=== PATIENT | male | born 1960 | race Caucasian/White ===

== ENCOUNTER 2021-10-21 01:53 | Day surgery (SDC) | payer OTHER, SELFPAY ==
[2021-10-08 13:07] VITALS: BMI 37.6
[2021-10-21 09:58] VITALS: BP 153/76; PULSE 90; RESP 20; TEMP 36.4; O2SAT 96; BMI 39.6
[2021-10-21] MEDS: LACTATED RINGERS 1,000 ML 150 ML IV CONT (10:08)
--- NOTE | 2021-10-21 10:38 | P.PNAN_ITS ---
Anes - Initial Pre Proc Eval Procedure: Operation Date: 10/21/21 11:15 Proposed Procedures p Screening Colonoscopy - Alverto Castañeda MD Date/Time: 10/21/21 10:38 Surgeon: Alverto Castañeda MD Pre Op Diagnosis: neoplasm screening Patient Data Age: 61 Gender: M Height: 1.8 m Weight: 128.8 kg Last Vital Signs Temp 97.5 F L 10/21/21 09:58 Pulse 90 10/21/21 09:58 Resp 20 10/21/21 09:58 BP 153/76 H 10/21/21 09:58 Pulse Ox 96 10/21/21 09:58 O2 Del Method Room Air 10/21/21 09:58 Allergies Allergy/AdvReac Type Severity Reaction Status Date / Time Penicillins AdvReac Hives Verified 10/21/21 09:57 Home Medications Medication Instructions Recorded Confirmed Type No Home Medications 10/08/21 10/08/21 History Patient hx anesthesia problems: none Family hx anesthesia problems: none Results Review: All pre-operative results and documents have been reviewed as part of the pre- operative evaluation. [facility] Social History Social History Smoking status: Former smoker Alcohol intake: current Drinks per week: 2 Substance use: never Living arrangements: with family Spiritual care concerns: No Anes - Eval Final PreProcedure Day of Procedure 10/21/21 10:38 Patient weight: morbidly obese Heart: regular rate and rhythm Lungs: clear to auscultation Airway: Mallampati scale class III Neurological: alert and oriented Last oral intake: >/= 8 hours ASA classification: III Emergent: no Anesthetic plan: proceed Anesthesia type and monitoring: general GIVS and standard monitoring Results Review: All pre-operative results and documents have been reviewed as part of the pre- operative evaluation. Informed Consent: The patient's anesthetic plan and its attendant risks and benefits were discussed with the patient/family/POA. Questions were solicited and answers provided to the satisfaction of the patient/family/POA.
--- NOTE | 2021-10-21 11:03 | P.HP_ITS ---
History of Present Illness History of Present Illness Consent: Risks, benefits, and alternatives have been discussed and questions answered. Patient agrees to proceed with procedure. Chief complaint: neoplasm screening Narrative: Aleksey Devries is a 61 year old male here for first screening colonoscopy Review of Systems Constitutional: Constitutional: Denies headache(s) and Denies weakness Eyes: Eyes: Denies blurry vision ENT: Reports Normal hearing present, Denies headache(s) and Denies neck pain Cardiovascular: Cardiovascular: Denies chest pain and Denies dyspnea Respiratory: Respiratory: Denies dyspnea Gastrointestinal: Gastrointestinal: Reports no additional gastrointestinal complaints Genitourinary: Genitourinary: Denies dysuria Musculoskeletal: Musculoskeletal: Denies neck pain Integumentary/Breasts: Skin/Breast: Denies dry skin Neurologic: Reports Normal hearing present, Denies headache(s) and Denies weakness Psychiatric: Psychiatric: Denies anxiety Endocrine: Endocrine: Denies change in body appearance Hematologic/Lymphatic: Hematologic/Lymphatic: Denies easy bleeding Allergic/Immunologic: Allergic/Immunologic: Denies urticaria [facility] Past Medical History Medical History (Updated 10/21/21 @ 11:03 by Alverto Castañeda MD) Colon cancer screening Social History Social History Smoking status: Former smoker Alcohol intake: current Drinks per week: 2 Substance use: never Living arrangements: with family Spiritual care concerns: No Meds Home Medications and Allergies Home Medications Medication Instructions Recorded Confirmed Type No Home Medications 10/08/21 10/08/21 History Allergies Allergy/AdvReac Type Severity Reaction Status Date / Time Penicillins AdvReac Hives Verified 10/21/21 09:57 Vital Signs Vital Signs - 24 hr 10/21/21 09:58 Temperature 97.5 F L Pulse Rate 90 Respiratory Rate 20 Blood Pressure 153/76 H Pulse Oximetry 96 Oxygen Delivery Room Air Exam Const: General: comfortable and no acute distress HENMT: General nose exam: Normal nares present Eyes: General: appearance normal, both eyes and all related structures Neck: Neck: no JVD Resp: Auscultation: clear to auscultation bilaterally Cardio: Rate: regular rate Rhythm: regular rhythm GI: Inspection: non-distended GI Palp: Yes Soft to palpation Skin: General skin exam: normal color Neuro: General: gait normal Speech: normal speech Extrem: General: normal to inspection Psych: Mental Status: mental status grossly normal Assessment and Plan Assessment and plan (1) Colon cancer screening: Code(s): Z12.11 - Encounter for screening for malignant neoplasm of colon Status: Acute Assessment and Plan: colonoscopy
[2021-10-21 11:25] VITALS: BP 122/78; PULSE 72; RESP 15; O2SAT 94
[2021-10-21 11:35] VITALS: BP 128/83; PULSE 72; RESP 18; O2SAT 96
[2021-10-21 11:45] VITALS: BP 145/89; PULSE 71; RESP 24; O2SAT 96
== END 2021-10-21 11:50 | disposition home or self-care (01) ==
PROVIDERS: PCP Internal Medicine; Visit Provider Internal Medicine Gastroenterology
PROC: 0DJD8ZZ Inspection of Lower Intestinal Tract, Via Natural or Artificial Opening Endoscopic (ICD-10-PCS; CPT 45378; principal; 2021-10-21 11:15)
DX: Z12.11 Encounter for screening for malignant neoplasm of colon (principal); D12.4 Benign neoplasm of descending colon; D12.3 Benign neoplasm of transverse colon; K63.5 Polyp of colon; K57.30 Diverticulosis of large intestine without perforation or abscess without bleeding; K64.8 Other hemorrhoids; Z87.891 Personal history of nicotine dependence; E66.01 Morbid (severe) obesity due to excess calories; Z68.39 Body mass index [BMI] 39.0-39.9, adult
CPT/HCPCS: 45380; 45385; 88305; J2001; J2704; J7120

== ENCOUNTER 2023-05-06 10:25 | Emergency (ER) | payer BC, SELFPAY ==
--- NOTE | 2023-05-06 10:30 | ED.EAR ---
HPI - Ear Problem General Chief complaint: Ear Stated complaint: left ear hearing difficulty Time Seen by Provider: 05/06/23 10:29 Source: patient Mode of arrival: ambulatory Limitations: no limitations History of Present Illness HPI Narrative: Patient is a 62-year-old male who presents with left ear decreased hearing. Patient uses Q-tips to clean ears. Reports issues with ear wax in the past. Denies any congestion, cough, fever, chills, sore throat and dizziness. MD Complaint: ear pain Related Data Home Medications Medication Instructions Recorded Confirmed rosuvastatin 10 mg tablet 10 mg PO DAILY 05/06/23 05/06/23 Allergies Allergy/AdvReac Type Severity Reaction Status Date / Time Penicillins AdvReac Hives Verified 05/06/23 10:33 Review of Systems Review of Systems: All systems reviewed & are unremarkable except as noted in HPI and below Constitutional: Constitutional: Denies body ache(s), Denies chills, Denies fever(s), Denies headache(s) and Denies malaise Eyes: Eyes: Denies blurry vision, Denies eye discharge and Denies irritation ENT: Reports ear discharge, Denies otalgia, Denies headache(s), Denies nasal congestion, Denies nasal discharge and Denies sore throat Cardiovascular: Cardiovascular: Denies chest pain, Denies edema, Denies palpitations and Denies dyspnea on exertion Respiratory: Respiratory: Denies cough and Denies dyspnea on exertion Gastrointestinal: Gastrointestinal: Denies abdominal pain, Denies diarrhea, Denies nausea and Denies vomiting Musculoskeletal: Musculoskeletal: Denies back pain, Denies arthralgias and Denies muscle weakness Integumentary/Breasts: Skin/Breast: Denies pruritus and Denies rash Neurologic: Denies headache(s) Psychiatric: Psychiatric: Reports no additional psychiatric complaints Endocrine: Endocrine: Denies palpitations PMFSH Past Medical History Medical History Colon cancer screening Social History Social History Smoking status: Former smoker Alcohol intake: current Drinks per week: 2 Substance use: never Living arrangements: with family Spiritual care concerns: No Comments At time of signature, agree with nursing past medical, surgical, social and family history. There is no relevant family history pertinent to the presenting complaint? Exam Const: General: cooperative, healthy appearing, no acute distress and well nourished Nutritional Appearance: well nourished Orientation/consciousness: patient oriented x3 Limitations: no limitations HENMT: Head: normal to inspection, normocephalic and atraumatic Ears: hearing grossly normal bilaterally, EAC's normal, no periauricular adenopathy and TM abnormal obstructed by cerumen bilateral Face/Nose/Sinus: Normal external nose present, Normal nares present, Normal nasal mucous membranes and turbinates present, No nasal discharge present, normal facial exam and sinuses nontender Face and sinus: normal facial exam and sinuses nontender Mouth: Yes Normal oral and palatal mucosa present, Yes lip normal, Yes tongue normal and Yes moist mucous membranes Throat: posterior oropharynx normal, tonsils normal and uvula midline Eyes: General: appearance normal, both eyes and all related structures Alignment and Position: alignment normal and position normal Eyelids: eyelids normal Pupils: Equal, round and reactive pupils present EOM: EOMs intact bilaterally Neck: Neck: normal visual inspection, full ROM, no lymphadenopathy and supple Chest: Chest palpation & inspection: normal inspection of the chest Resp: Effort & Inspection: normal respiratory effort and able to speak in complete sentences Auscultation: clear to auscultation bilaterally, no crackles, no rales, no rhonchi and no wheezes Cardio: Rate: regular rate Rhythm: regular rhythm Heart sounds: S1 normal heart sound present and S2 normal
[2023-05-06 10:38] VITALS: BP 148/95; PULSE 88; RESP 16; TEMP 37.7; O2SAT 99
== END 2023-05-06 11:24 | disposition home or self-care (01) ==
PROVIDERS: Emergency Provider Nurse Practitioner Family; PCP Internal Medicine
DX: H61.23 Impacted cerumen, bilateral (principal); Z79.899 Other long term (current) drug therapy; Z87.891 Personal history of nicotine dependence
CPT/HCPCS: 69210; 99212; G0463

== ENCOUNTER 2025-04-04 01:33 | Day surgery (SDC) | payer MEDICARE, SELFPAY ==
[2025-03-12 10:53] VITALS: BMI 39.3
--- OUTSIDE RECORDS SUMMARY | 2025-04-04 01:36 | XMS_ITS | Clinical Summary ---
Author Organization [facility] Address [address] [place] [id number] Care Team Providers Care Clinical Rehab Liaison Name Role Phone Unavailable Primary Care Provider Unavailabl e Social History Tobacco Use Types Packs/Day Years Used Date Smoking Tobacco: Never Assessed Sex and Gender Information Value Date Recorded Sex Assigned at Not on file Legal Sex Male 6:51 PM CDT Gender Identity Not on file Sexual Orientation Not on file Plan of Treatment Health Maintenance Due Date Last Done Comments Colorectal Cancer Screening Colonoscopy (10 Years) 1958 Hepatitis C 1976 DTaP, Tdap and Td Vaccines ( 1 - Tdap) 1977 Pneumococcal Vaccine: 50+ Ye ars (1 of 1 - PCV) 2008 Zoster Vaccines (1 of 2) 2008 COVID-19 Vaccine ( - 2024-2 6 season) 2024 Influenza Adult (#1) 2025 RSV Immunization or 60+ Years (1 - 1-dose 75+ series) 2033 Hepatitis A Vaccines Aged Out No long er eligible based on patient's age to complete this topic Meningococcal B Vaccine Aged Out No l onger eligible based on patient's age to complete this topic Meningococcal Vaccine Aged Out No caroline sola eligible based on patient's age to complete this topic RSV Immunizations Under 20 Months Aged Out No longer eligible based on patient's age to complete this topic
--- OUTSIDE RECORDS SUMMARY | 2025-04-04 01:36 | XMS_ITS | Clinical Summary ---
Author Organization [facility] Address [address] [place] [address] Care Team Providers Care Configuration Management Architect Name Role Phone Alberto Ansari DO Unavailable [phone] Eric Lance MD Primary Care Provider [phone] Allergies Active Allergy Reactions Criticality Noted Date Comments Penicillins Rash Medium 12/02/2019 Medications HYDROcodone-acetam inophen (NORCO) 5-325 mg per tablet 12/03/19 20 Active ondansetron ODT (ZOFRAN-ODT) 4 mg disintegrating tablet 12/03/19 20 Active aspirin 81 mg enteric coated tablet Take 1 tablet (81 mg total) by mouth 2 (two) times a day 12/07/19 20 Active diphenhydrAMINE-ac etaminophen (TYLENOL PM) 25-500 mg tablet Take 1-2 tablets by mouth nightly as needed for sleep Active calcium carbonate (TUMS) 500 mg calcium (200 mg of elemental calcium) chewable tablet Take 1-2 tablet/chew tab (500-1,000 mg total) by mouth daily as needed for indigestion or heartburn Active rosuvastatin (CRESTOR) 10 mg tablet Take 1 tablet (10 mg total) by mouth daily Active Active Problems Problem Noted Date Diagnosed Date Hyperlipidemia 10/01/2024 Morbid obesity 10/01/2024 Status post open reduction w ith internal fixation (ORIF) of fracture of ankle 12/09/2022 Assessment & Plan (12/09/2022 12:15 PM CDT): Patient is overall doing very well. Discussed with patient possibility of hardware removal if it was bothering him enough, but patient states it is not bothering him enough to consider hardware removal. Discussed ways to manage swelling including compression, elevation, icing, and ibuprofen as needed. All questions were addressed today. He may follow-up in 1 year for hardware check, or p.r.n. before then. He expressed understanding and agreement with the plan. Closed fracture of right distal fibula 1 Overview (09/29/2020): Added automatically from request for surgery [id number] Closed trimalleolar fracture 12/05/2019 Fall injury while running 12/05/2019 Surgical History Surgery Date Site/Laterality Comments ANKLE FRACTURE SURGERY 12/07/2019 Right ORIF R Trimalleolar Fx ANKLE SURGERY 03/28/2020 removed one piece of hardware states pt KELOID EXCISION 04/25/1971 keloid tumor excision from neck Medical History Medical History Date Comments GERD (gastroesophageal reflux disease) with certain acid type foods see med list for prn treatment Obesity HL (hearing loss) right ear slig htly decreased no devices Wears glasses Dental filling status fillings m issing from some teeth right and left upper sides and left lower side Uses crutches pt is using crut ches at this time Family History Medical History Relation Name Comments Arthritis Father Heart disease Father Cancer Mother Relation Name Status Comments Father Mother Social History Tobacco Use Types Packs/Day Years Used Date Smoking Tobacco: Former Cigarettes 1 - 2009 Smokeless Tobacco: Never Tobacco Cessation:Counseling Given: No Alcohol Use Standard Drinks/Week Comments Yes 0 (1 standard drink = 0.6 oz pur e alcohol) AUDIT-C Answer Date Recorded Q1: How often do you have a drink containing alc ohol? Monthly or less 09/26/2020 Q2: How many drinks containi ng alcohol do you have on a typical day when you are drinking? 3 or 4 09/26/2020 Q3: How often do you have si x or more drinks on one occasion? 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 on file Not on file Not on file Last Filed Vital Signs Vital Sign Reading Time Taken Comments Blood Pressure 148/84 09/30/2020 12:50 PM CDT Pulse 85 09/30/2020 12:50 PM CDT Temperature 36 C (96.8 F) 09/30/2020 12:20 PM CDT Respiratory Rate 0 09/30/2020 12:59 PM CDT Oxygen Saturation 91% 09/30/2020 12:50 PM CDT Inhaled Oxygen Concentration - - Weight 137 kg (302 lb) 10/01/2024 8:11 AM CDT Height 180.3 cm (5' 11) 10/01/2024 8:11 AM CDT Body Mass Index 42.12 10/01/2024 8:11 AM CDT Plan of Treatment Health Maintenance Due Date Last Done Comments Colon Cancer Screening-Colonoscopy 1960 Depression Screening 1958 Hepatitis C Screening 1958 Prostate Cancer Screening-PSA 1958 Hepatitis B Screening 1976 Zoster Vaccine (1 of 2) 2008 Fall Risk Assessment 09/30/2021 09/30/2020 Abdominal Aortic Aneurysm (AAA) Screen 09/05/2023 Well Visit 65+ 09/05/2023 Influenza Vaccine (#1) 2024 05/10/2023 DTaP/Tdap/Td Vaccine (2 - Td or Tdap) 05/10/2033 Pneumococcal vaccine 65+ Completed 11/24/2023 Medical Devices Implanted Type Area Engine Generator Assembler Device Identifier Shelf Expiration Date Model / Serial / Lot [employer] Abs-2009-08 Graft Bone Allosync 5cc Allograft Pure - [id number] Implanted:Qty: 1 on 09/30/2020 by Alberto Ansari DO at [facility] Graft Right: Ankle [employer] 04/14/2025 ABS- 5 / / [id number], Right Distal Fibula Plate Implanted:Qty: 1 on 09/30/2020 by Alberto Ansari DO at [facility] Plate Right: Ankle [employer] AR-8943BR- 08 / / [id number] Unknown Right: Ankle Description:Right ankle ORIF [employer] Ar-8835-16 Low Profile Screws 3.5mm 16mm Modular Solid Hexalobe Self Tap - [id number] Implanted:Qty: 1 on 09/30/2020 by Alberto Ansari DO at [facility] Right: Ankle [employer] AR-8835-16 / / [employer] Ar-8827l-18 Low Profile Screws 2.7mm 18mm Modular Solid Hexalobe Lock Ankle - [id number] Implanted:Qty: 1 on 09/30/2020 by Alberto Ansari DO at [facility] Right: Ankle [employer] AR-8827L-1 8 / / 2.7 Locking Screw Implanted:Qty: 3 on 09/30/2020 by Alberto Ansari DO at [facility] Right: Ankle [employer] AR-8827L-2 0 / / [employer] Ar-8835l-16 Low Profile Screws 3.5mm 16mm Modular Solid Hexalobe Lock Ankle - [id number] Implanted:Qty: 4 on 09/30/2020 by Alberto Ansari DO at [facility] Right: Ankle [employer] AR-8835L-1 6 / / [employer] Ar-8925ss System Fxatn Tightrope Xp Ss Syndesmosis Repair - [id number] Implanted:Qty: 1 on 09/30/2020 by Alberto Ansari DO at [facility] Right: Ankle [employer] [id number] 06/22/2025 AR-8925SS / / [employer] Ar-8925ss System Fxatn Tightrope Xp Ss Syndesmosis Repair - [id number] Implanted:Qty: 1 on 09/30/2020 by Alberto Ansari DO at [facility] Right: Ankle [employer] [id number] 06/22/2025 AR-8925SS / / AR-8925SS 3.5 Non Locking Screw Implanted:Qty: 1 on 09/30/2020 by Alberto Ansari DO at [facility] Right: Ankle [employer] AR-8935-60 / / [id number] [place] [address] [employer] MED[employer]ARE GOLD Care Teams Configuration Management Architect Relationship Specialty Start Date End Date Eric Lance MD [address] [place] [address] [place] [id number] PCP - General Internal Medicine 10/16/20 Alberto Ansari DO [address] [place] [address] Consulting Physician Orthopedic Surgery 09/30/20
[2025-04-04 08:56] VITALS: BP 159/86; PULSE 78; RESP 18; TEMP 36.4; O2SAT 97
[2025-04-04] MEDS: LACTATED RINGERS 1,000 ML 150 ML IV CONT (09:07)
--- NOTE | 2025-04-04 09:08 | WPDANESEPPF ---
Anes - Initial Pre Proc Eval Procedure: Operation Date: 04/04/25 10:00 Proposed Procedures p Screening Colonoscopy - Alverto Castañeda MD Date/Time: 04/04/25 09:08 Surgeon: Alverto Castañeda MD Pre Op Diagnosis: Personal history of colon polyps, unspecified Patient Data Age: 64 Gender: M Height: 1.8 m Weight: 128 kg Last Vital Signs Temp 97.6 F 04/04/25 08:56 Pulse 78 04/04/25 08:56 Resp 18 04/04/25 08:56 BP 159/86 H 04/04/25 08:56 Pulse Ox 97 04/04/25 08:56 O2 Del Method Room Air 04/04/25 08:56 Allergies Allergy/AdvReac Type Severity Reaction Status Date / Time Penicillins AdvReac Hives Verified 04/04/25 08:55 Home Medications ?Medication ?Instructions ?Recorded ?Confirmed ?Type rosuvastatin 10 mg tablet 10 mg PO DAILY 05/06/23 03/13/25 History Patient hx anesthesia problems: none Family hx anesthesia problems: none Results Review: All pre-operative results and documents have been reviewed as part of the pre-operative evaluation. [facility] Past Medical History Medical History Colon cancer screening Social History Social History Smoking packs per day: 0.5 Smoking cigarettes per day: 10.0 Years smoked: 20 Smoking pack-years: 10.00 Smoking status: Former smoker Alcohol intake: current Drinks per week: 2 Substance use: never Living arrangements: with family Spiritual care concerns: No Anes - Eval Final PreProcedure Day of Procedure 04/04/25 09:08 Patient weight: morbidly obese Heart: regular rate and rhythm Lungs: clear to auscultation Airway: Mallampati scale class II Neurological: alert and oriented Last oral intake: >/= 8 hours ASA classification: III Emergent: no Anesthetic plan: proceed Anesthesia type and monitoring: general GIVS and standard monitoring Results Review: All pre-operative results and documents have been reviewed as part of the pre-operative evaluation. Informed Consent: The patient's anesthetic plan and its attendant risks and benefits were discussed with the patient/family/POA. Questions were solicited and answers provided to the satisfaction of the patient/family/POA.
--- NOTE | 2025-04-04 09:30 | P.HP_ITS ---
History of Present Illness History of Present Illness Consent: Risks, benefits, and alternatives have been discussed and questions answered. Patient agrees to proceed with procedure. Chief complaint: Personal history of colon polyps, unspecified Narrative: Aleksey Devries is a 64 year old male with colon polyp in 2021 Review of Systems Review of Systems: All systems reviewed & are unremarkable except as noted in HPI and below PMFSH Past Medical History Medical History (Updated 04/04/25 @ 09:31 by Alverto Castañeda MD) Colon polyp Colon cancer screening Social History Social History Smoking packs per day: 0.5 Smoking cigarettes per day: 10.0 Years smoked: 20 Smoking pack-years: 10.00 Smoking status: Former smoker Alcohol intake: current Drinks per week: 2 Substance use: never Living arrangements: with family Spiritual care concerns: No Meds Home Medications and Allergies Home Medications ?Medication ?Instructions ?Recorded ?Confirmed ?Type rosuvastatin 10 mg tablet 10 mg PO DAILY 05/06/2302/23 History Allergies Allergy/AdvReac Type Severity Reaction Status Date / Time Penicillins AdvReac Hives Verified 04/04/25 08:55 Vital Signs Vital Signs - 24 hr 04/04/25 08:56 Temperature 97.6 F Pulse Rate 78 Respiratory Rate 18 Blood Pressure 159/86 H Pulse Oximetry 97 Oxygen Delivery Room Air Exam Const: General: comfortable and no acute distress HENMT: Face/Nose/Sinus: Normal nares present Eyes: General: appearance normal, both eyes and all related structures Neck: Neck: no JVD Resp: Auscultation: clear to auscultation bilaterally Cardio: Rate: regular rate Rhythm: regular rhythm GI: Inspection: non-distended GI Palp: Yes Soft to palpation Skin: General skin exam: normal color Extrem: General: normal to inspection Psych: Mental Status: mental status grossly normal Assessment and Plan Assessment and plan (1) Colon polyp: Code(s): K63.5 - Polyp of colon Status: Acute Assessment and Plan: colonoscopy
[2025-04-04 09:47] VITALS: BP 127/78; PULSE 68; RESP 15; O2SAT 96
[2025-04-04 09:57] VITALS: BP 122/76; PULSE 66; RESP 26; O2SAT 96
[2025-04-04 10:07] VITALS: BP 147/90; PULSE 68; RESP 16; O2SAT 97
== END 2025-04-04 10:20 | disposition home or self-care (01) ==
PROVIDERS: PCP Internal Medicine; Referring Provider Internal Medicine Gastroenterology; Visit Provider Internal Medicine Gastroenterology
PROC: 0DJD8ZZ Inspection of Lower Intestinal Tract, Via Natural or Artificial Opening Endoscopic (ICD-10-PCS; CPT 45378; principal; 2025-04-04 10:00)
DX: Z12.11 Encounter for screening for malignant neoplasm of colon (principal); K57.30 Diverticulosis of large intestine without perforation or abscess without bleeding; K64.8 Other hemorrhoids; K64.4 Residual hemorrhoidal skin tags; Z86.0100 Personal history of colon polyps, unspecified; Z87.891 Personal history of nicotine dependence; E66.01 Morbid (severe) obesity due to excess calories; Z68.39 Body mass index [BMI] 39.0-39.9, adult
CPT/HCPCS: G0105; J2704; J7120

== ENCOUNTER 2025-04-22 18:12 | Emergency (ER) | payer MEDICARE, SELFPAY ==
--- NOTE | ~2025-04-22 | CT_ITS ---
CT HEAD NON-CONTRAST Clinical History: headache, hypertension Comparison: None Technique: Unenhanced axial images skull base to vertex Coronal, sagittal reformats CT images acquired with automatic exposure control for dose reduction DLP: 681 mGy-cm Findings: Sulci, ventricles: Unremarkable. No intracerebral hemorrhage. No evidence acute territorial infarct. No mass effect, midline shift. Bony calvarium intact. Visualized paranasal sinuses: Left frontal opacified. Mastoid air cells: Clear. IMPRESSION: 1. No acute intracranial findings. Reviewed, dictated and finalized at location R. USEMENT RIDE INSPECTOR
--- OUTSIDE RECORDS SUMMARY | 2025-04-22 18:14 | XMS_ITS | Clinical Summary ---
Author Organization [facility] Address [address] [place] [id number] Care Team Providers Care Manager Information Name Role Phone Unavailable Primary Care Provider [...] Vaccines (1 of 2) 2008 COVID-19 Vaccine (1 - 2024-2 6 season) 2024 Influenza Adult [...]
[2025-04-22 18:20] VITALS: BP 157/96; PULSE 95; RESP 18; TEMP 36.7; O2SAT 99
[2025-04-22 22:11] VITALS: BP 155/93; PULSE 88; RESP 16; TEMP 36.3; O2SAT 98
--- OUTSIDE RECORDS SUMMARY | 2025-04-22 23:51 | XMS_ITS | Clinical Summary ---
Author Organization [facility] Address [address] [place] [id number] Care Team Providers Care Catheter Builder Name Role Phone Unavailable Primary Care Provider [...]
[2025-04-23] VITALS (7 sets, daily range): BP systolic 137–152; BP diastolic 81–99; PULSE 77–84; RESP 16–20; TEMP 36.6; O2SAT 92–99
--- NOTE | 2025-04-23 00:21 | ED.HA ---
HPI - Headache General Chief Complaint: Headache Stated Complaint: CASTRO, HTN Time Seen by Provider: 04/22/25 23:23 Source: patient Mode of arrival: ambulatory Limitations: no limitations History of Present Illness HPI Narrative: This is a 64 year old male that presents to the ER for headaches. Ongoing intermittently over the last week. Reports his blood pressure has been elevated. Does not take medication for hypertension. Denies vision changes, vomiting, focal numbness, weakness. Related Data Home Medications ?Medication ?Instructions ?Recorded ?Confirmed ?Last Taken ?Type rosuvastatin 10 mg tablet 10 mg PO DAILY 05/06/23 03/13/25 Unknown History Allergies Allergy/AdvReac Type Severity Reaction Status Date / Time Penicillins AdvReac Hives Verified 04/22/25 18:13 Review of Systems Review of Systems: All systems reviewed & are unremarkable except as noted in HPI and below PMFSH Past Medical History Medical History (Updated 04/23/25 @ 02:14 by Ambar Lange PA-C) Colon polyp Colon cancer screening Social History Social History Smoking packs per day: 0.5 Smoking cigarettes per day: 10.0 Years smoked: 20 Smoking pack-years: 10.00 Smoking status: Former smoker Alcohol intake: current Drinks per week: 2 Substance use: never Living arrangements: with family Spiritual care concerns: No Exam Narrative: GENERAL: Well-appearing, well-nourished, and in no acute distress. HEAD: Normocephalic, atraumatic. EYES: PERRLA and EOMI. ENT: Nares clear, no rhinorrhea or epistaxis. Mucous membranes moist. Oropharynx without tonsillar hypertrophy exudate or other lesions. Bilateral TMs pearly phillips non-bulging NECK: Supple. No adenopathy or masses. CHEST: Clear to auscultation. No respiratory distress. No wheezes rales or rhonchi HEART: Regular rate and rhythm. No murmur heard. Normal peripheral pulses. EXTREMITIES: Normal range of motion. No edema. SKIN: Warm, dry, no rash. NEURO: No focal deficits. Alert and oriented x3. CN II-XII grossly intact PSYCH: Normal mood and affect Course Vital Signs Vital signs: Vital Signs Temperature 98.0 F 04/22/25 18:20 Pulse Rate 95 04/22/25 18:20 Respiratory Rate 18 04/22/25 18:20 Blood Pressure 157/96 H 04/22/25 18:20 Pulse Oximetry 99 04/22/25 18:20 Oxygen Delivery Room Air 04/22/25 18:20 Temperature 98 F 04/23/25 01:46 Pulse Rate 80 04/23/25 01:46 Respiratory Rate 18 04/23/25 01:46 Blood Pressure 152/85 H 04/23/25 01:46 Pulse Oximetry 95 04/23/25 01:46 Oxygen Delivery Room Air 04/22/25 18:20 [facility] Narrative Medical decision making narrative: Patient presents to the emergency department for headaches. Ongoing over the last week. Patient is afebrile and nontoxic appearing. He is neurologically intact. Blood pressure mildly elevated the 150s upon arrival, this down trended without intervention. Most recent blood pressure 137/81. CBC metabolic panel without concerning findings. CT brain without acute intracranial abnormality. Does show frontal sinusitis. Patient updated on his workup. Agrees with plan of care. Resting comfortably. Follow up with PCP Differential Diagnosis Differential Diagnosis: headache, sinusitis, hypertension, elevated blood pressure reading Lab Data [facility] Lab Attestation statement: I personally reviewed the patient's lab results. 04/23/25 00:39 04/23/25 00:39 Labs: Lab Results 04/23/25 Range/Units 00:39 WBC 9.0 (4.5-10.0) K/mm3 RBC 4.93 (4.6-6.20) M/mm3 Hgb 15.0 (14.0-18.0) g/dL Hct 45.6 (42.0-52.0) % MCV 92.5 (80-100) fl MCH 30.4 (26-34) pg MCHC 32.9 (32-36) g/dl RDW 13.2 (11.5-14.5) % Plt Count 197 (150-375) k/mm3 MPV 11.0 H (7.4-10.4) fl Immature Gran % (Auto) 0.4 (0-0.5) % Neut % (Auto) 69.1 (45.5-73.1) % Lymph % (Auto) 21.6 (18.3-44.2) % [place] % (Auto) 7.3 (2.6-8.5) % Eos % (Auto) 0.9 (0-4.4) % Baso % (Auto) 0.7 (0.2-1.2) % Lymph # (Auto) 1.95 (0.9-3.2) K/mm3 [place] # (Auto) 0.7 H (0.1-0.6) K/mm3 Eos # (Auto) 0.1 (0-0.3) K/mm3 Baso # (Auto) 0.1 (0.0-0.1) K/mm3 Abs Immat Gran (auto) 0.04 H (0.00-0.031) K/mm3 Absolute Neuts (auto) 6.2 (1.3-6.7) K/mm3 Absolute Nucleated RBC 0.000 (0.0-0.012) K/mm3 Nucleated RBC % 0.0 (0.0-0.2) % Sodium 139 (137-145) mmol/L Potassium 4.4 (3.4-5.0) mmol/L Chloride 106 (98-107) mmol/L Carbon Dioxide 23 (22-30) mmol/L Anion Gap 10 (4-12) mmol/L BUN 22 H (9-20) mg/dL Creatinine 1.09 (0.7-1.3) mg/dL Estim Creat Clear Calc 83 ml/min Estimated GFR > 60 (59 - ) Glucose 108 (65-110) mg/dL Calcium 9.1 (8.4-10.2) mg/dL Magnesium 1.6 (1.6-2.3) mg/dL Total Bilirubin 1.1 (0.2-1.3) mg/dL AST 34 (17-59) U/L ALT 27 (6-50) U/L Alkaline Phosphatase 63 (38-126) U/L Total Protein 8.0 (6.3-8.2) g/dL Albumin 4.5 (3.5-5.1) g/dL Imaging Data Radiologist's impression: CT brain: No acute hemorrhage, hydrocephalus, or mass effect. Bones unremarkable. Opacification left frontal sinus and left nasal cavity Critical Care Time Critical Care Time Critical Care Time: No Discharge Plan Discharge Clinical Impression: Elevated blood pressure reading Acute frontal sinusitis Qualifiers: Recurrence: not specified as recurrent Qualified Code(s): J01.10 - Acute frontal sinusitis, unspecified Headache Qualifiers: Headache type: unspecified Headache chronicity pattern: acute headache Intractability: not intractable Qualified Code(s): R51.9 - Headache, unspecified Patient Disposition: Home Condition: Improved Instructions: Antibiotic Form, Sinusitis (ED), Hypertension (ED) Additional Instructions: Return to the emergency department if you experience fever, chest pain, shortness of breath, abdominal pain with nausea and vomiting, weakness, numbness, or any other symptoms that are concerning to you. Remain well hydrated. Tylenol or ibuprofen as needed for pain. Take oral antibiotic as prescribed Follow up with primary care doctor Patient Language: Khmer Prescriptions: New doxycycline hyclate 100 mg tablet 100 mg PO BID 5 Days Qty: 10 0RF No Action rosuvastatin 10 mg tablet 10 mg PO DAILY Follow-up/Referrals: Khmer,Eric Ventura MD [Primary Care Provider]
[2025-04-23] MEDS: METOCLOPRAMIDE HCL INJ 10 MG/2 ML VIAL IV PUSH (00:40)
[2025-04-23] MEDS: SODIUM CHLORIDE 0.9% IV 1,000 ML 999 ML IV CONT (00:40)
[2025-04-23 00:45] LABS: Hematocrit 45.6 % (42.0-52.0); Hemoglobin 15.0 g/dL (14.0-18.0); Immature Granulocyte Percent A 0.4 % (0-0.5); Lymphocytes Absolute Auto 1.95 K/mm3 (0.9-3.2); Mean Corpuscular HGB Conc 32.9 g/dl (32-36); Mean Corpuscular Hemoglobin 30.4 pg (26-34); Mean Corpuscular Volume 92.5 fl (80-100); Nucleated Red Blood Cells Absolute Auto 0.000 K/mm3 (0.0-0.012); Nucleated Red Blood Cells Perc 0.0 % (0.0-0.2); Platelet Count Result 197 k/mm3 (150-375); Red Blood Count 4.93 M/mm3 (4.6-6.20); White Blood Count 9.0 K/mm3 (4.5-10.0)
[2025-04-23 00:59] LABS: Alanine Aminotransferase 27 U/L (6-50); Albumin Level 4.5 g/dL (3.5-5.1); Alkaline Phosphatase 63 U/L (38-126); Anion Gap 10 mmol/L (4-12); Aspartate Amino Transferase 34 U/L (17-59); Bilirubin,Total 1.1 mg/dL (0.2-1.3); Blood Urea Nitrogen 22 mg/dL (9-20); Calcium 9.1 mg/dL (8.4-10.2); Carbon Dioxide 23 mmol/L (22-30); Chloride 106 mmol/L (98-107); Estimated CRCL calculation 83 ml/min; Estimated Glomerular Filt Rate > 60; Glucose 108 mg/dL (65-110); Magnesium 1.6 mg/dL (1.6-2.3); Potassium 4.4 mmol/L (3.4-5.0); Sodium 139 mmol/L (137-145); Total Protein 8.0 g/dL (6.3-8.2)
[2025-04-23] MEDS: ACETAMINOPHEN 500 MG TABLET 1000 MG PO (01:47)
== END 2025-04-23 02:35 | disposition home or self-care (01) ==
PROVIDERS: Emergency Provider Physician Assistant; PCP Internal Medicine
DX: J01.10 Acute frontal sinusitis, unspecified (principal); R51.9 Headache, unspecified; R03.0 Elevated blood-pressure reading, without diagnosis of hypertension; Z86.0100 Personal history of colon polyps, unspecified; Z87.891 Personal history of nicotine dependence
CPT/HCPCS: 36415; 70450; 80053; 83735; 85025; 96361; 96374; 96375; 99284; A9270; J1200; J2765; J7030